=== PATIENT | female | born 1985 | race African-American/Black ===

== ENCOUNTER 2016-12-15 16:53 | Emergency (ER) | payer OTHER, MEDICARE ==
[~2016-12-15] VITALS: Ht 152.4 cm; Wt 81.2 kg
[~2016-12-15 16:53] MED LIST: LEVE100020 PO; TOPI50TA38 PO; [UNRECOGNIZED DRUG - OTHER]
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
[2016-12-15 19:00] VITALS: BP 108/74
[2016-12-15] MEDS: LORazepam 2 MG/ML VIAL IV ONE (19:26)
[2016-12-15] MEDS: levETIRAcetam 500 MG TABLET PO SCH (19:34)
[2016-12-15] MEDS: TOPIRAMATE 25 MG TABLET. PO ONE (19:34)
--- NOTE | 2016-12-16 06:07 | EKG ---
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
== END 2016-12-15 19:40 | disposition home or self-care (01) ==
LOC: ER 16:53
DX: G40.909 Epilepsy, unspecified, not intractable, without status epilepticus (principal); S20.212A Contusion of left front wall of thorax, initial encounter; Z91.14 Patient's other noncompliance with medication regimen; V43.52XA Car driver injured in collision with other type car in traffic accident, initial encounter; Y93.89 Activity, other specified; Y99.8 Other external cause status; Y92.410 Unspecified street and highway as the place of occurrence of the external cause
CPT/HCPCS: 71020; 93005; 99284

== ENCOUNTER 2016-12-26 10:47 | Observation (INO) | payer MEDICARE, OTHER ==
[~2016-12-26] VITALS: Ht 157.5 cm; Wt 81.6 kg
[2016-12-26 15:20] LABS: BASO % 0 % (0-3); EOS # 0.3 x10^3/uL (0.0-0.7); EOS % 4 % (0-3); HEMATOCRIT 35.6 % (36.0-47.0); HEMOGLOBIN 12.1 g/dL (12.0-15.5); LYMPH # 2.3 x10^3/uL (1.0-4.8); LYMPH % 37 % (24-48); MEAN CORPUSCULAR HEMOGLOBIN 30 pg (25-35); MEAN CORPUSCULAR HGB CONC 34 g/dL (31-37); MEAN CORPUSCULAR VOLUME 88 fL (79-100); MONO # 0.3 x10^3/uL (0.0-1.1); MONO % 4 % (0-9); NEUT # 3.4 x10^3uL (1.8-7.7); NEUT % 54 % (31-73); PLATELET COUNT 269 x10^3/uL (140-400); RED BLOOD COUNT 4.06 x10^6/uL (3.50-5.40); RED CELL DISTRIBUTION WIDTH 15.9 % (11.5-14.5); WHITE BLOOD COUNT 6.3 x10^3/uL (4.0-11.0)
[2016-12-26 15:22] VITALS: BP 99/61
[2016-12-26 15:37] LABS: CALCIUM 8.7 mg/dL (8.5-10.1); GFR 78.2; POTASSIUM 3.2 mmol/L (3.5-5.1); TOTAL BILIRUBIN 0.3 mg/dL (0.2-1.0); TOTAL PROTEIN 8.1 g/dL (6.4-8.2)
--- NOTE | 2016-12-26 15:41 | RAD ---
Indication: Chest pain. Time of exam 1530 hours. Correlation is made with prior study from 12/15/2016. The heart size is stable. Stimulator battery pack overlies the left mid chest. There is a calcified granuloma in the right base. No acute infiltrates are seen. No effusion or pneumothorax is identified. Impression: Stable chest. No acute feature is detected.
[2016-12-26] MEDS ORDERED: TOPI50TA8 PO (15:44)
[2016-12-26] MEDS ORDERED: CLOB10TA PO ×2 (15:44)
[2016-12-26] MEDS ORDERED: LEVE750T8 PO (15:44)
[2016-12-26] MEDS ORDERED: CLOB20TA PO (15:44)
[2016-12-26] MEDS ORDERED: LEVO50TA5 PO (15:44)
[2016-12-26] MEDS ORDERED: SENN25TA PO (15:45)
--- NOTE | 2016-12-26 16:55 | EKG ---
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
[2016-12-26] MEDS ORDERED: SENNOSIDES 8.6 MG TABLET PO SCH ×2 (17:00→21:00)
[2016-12-26] MEDS: CLOBAZAM 20 MG PO SCH ×2 (17:00→17:28)
[2016-12-26] MEDS: levETIRAcetam 500 MG TABLET PO SCH (17:08)
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
[2016-12-26] MEDS: TOPIRAMATE 25 MG TABLET. PO SCH (17:27)
[2016-12-26] MEDS ORDERED: IOHEXOL 300 MG/ML 75 ML VIAL. IV ONE (18:00)
[2016-12-26] MEDS ORDERED: ATOR20TA58 PO (18:01)
[2016-12-26 18:03] VITALS: BP 147/82
[2016-12-26] MEDS: LIDOCAINE (700MG/PATCH) PATCH. TD SCH (20:45)
[2016-12-26] MEDS ORDERED: levETIRAcetam 500 MG TABLET PO SCH (21:00)
[2016-12-26] MEDS ORDERED: CLOBAZAM 20 MG PO SCH (21:00)
[2016-12-26] MEDS ORDERED: ATORVASTATIN CALCIUM 20 MG TABLET PO SCH (21:00)
[2016-12-26] MEDS ORDERED: TOPIRAMATE 25 MG TABLET. PO SCH (21:00)
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
[2016-12-26 23:24] VITALS: BP 95/55
[2016-12-27 05:00] VITALS: BP 101/59
[2016-12-27] MEDS ORDERED: CLOBAZAM PO SCH (06:00)
[2016-12-27] MEDS ORDERED: LEVOTHYROXINE 50 MCG TABLET PO SCH (06:00)
[2016-12-27] MEDS: levETIRAcetam 500 MG TABLET PO SCH (06:07)
[2016-12-27] MEDS: TOPIRAMATE 25 MG TABLET. PO SCH (06:13)
[2016-12-27 06:46] LABS: BASO # 0.1 x10^3/uL (0.0-0.2); BASO % 1 % (0-3); EOS # 0.3 x10^3/uL (0.0-0.7); EOS % 5 % (0-3); HEMATOCRIT 33.1 % (36.0-47.0); HEMOGLOBIN 11.4 g/dL (12.0-15.5); LYMPH # 2.2 x10^3/uL (1.0-4.8); LYMPH % 37 % (24-48); MEAN CORPUSCULAR HEMOGLOBIN 30 pg (25-35); MEAN CORPUSCULAR HGB CONC 34 g/dL (31-37); MEAN CORPUSCULAR VOLUME 87 fL (79-100); MONO # 0.3 x10^3/uL (0.0-1.1); MONO % 6 % (0-9); NEUT % 50 % (31-73); PLATELET COUNT 244 x10^3/uL (140-400); RED BLOOD COUNT 3.79 x10^6/uL (3.50-5.40); RED CELL DISTRIBUTION WIDTH 16.4 % (11.5-14.5); WHITE BLOOD COUNT 5.9 x10^3/uL (4.0-11.0)
[2016-12-27 07:03] LABS: CALCIUM 8.6 mg/dL (8.5-10.1); GFR 78.2; POTASSIUM 3.5 mmol/L (3.5-5.1)
[2016-12-27] MEDS: LIDOCAINE (700MG/PATCH) PATCH. TD SCH ×2 (09:39→13:48)
[2016-12-27 10:48] VITALS: BP 101/66
[2016-12-27] MEDS ORDERED: CLOBAZAM 10 MG PO SCH (12:00)
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
[2016-12-27 14:25] VITALS: BP 100/64
[2016-12-27] MEDS ORDERED: SENNOSIDES 8.6 MG TABLET PO PRN (17:00)
== END 2016-12-27 14:50 | disposition home or self-care (01) ==
LOC: 1 SOUTH 14:36
PROVIDERS: ADMIT Family Medicine; ATTEND Family Medicine
DX: R07.89 Other chest pain (principal); R00.1 Bradycardia, unspecified; G40.909 Epilepsy, unspecified, not intractable, without status epilepticus; Z83.3 Family history of diabetes mellitus; Z82.49 Family history of ischemic heart disease and other diseases of the circulatory system
CPT/HCPCS: 36415; 71020; 71260; 80048; 80053; 80061; 82550; 83880; 84443; 84484; 85025; 85379; 93005; 93306; G0378; G0379; Q9967

== ENCOUNTER → 2020-03-12 | Outpatient (CLI) | payer MEDICARE, OTHER ==
[~2020-03-12] MED LIST changes: +ATOR20TA58 PO; +CLOB10TA PO; +CLOB20TA PO; +LEVE750T8 PO; +LEVO50TA5 PO; +SENN25TA PO; +TOPI50TA8 PO
--- NOTE | 2020-03-12 09:26 | RAD ---
EXAM: Chest, 2 views. HISTORY: VQ scan. Shortness of breath. COMPARISON: None. FINDINGS: A frontal view of the chest is obtained. There is no infiltrate, pleural effusion or pneumo thorax. There is a stable cardiac silhouette. There is a left sided vagal nerve stimulator generator and lead overlying the left chest and neck. IMPRESSION: No acute pulmonary finding. Electronically signed by: Maritza Mathew MD (03/12/2020 9:23 AM) [id number]
--- NOTE | 2020-03-12 12:45 | RAD ---
EXAM: Pulmonary perfusion scan. HISTORY: Shortness of breath. Pulmonary embolism TECHNIQUE: Scintigraphic images of the chest were obtained following the administration of 5.5 mCi Tc -99m MAA. COMPARISON: Chest radiograph obtained on the same date. FINDINGS: There is a small peripheral region of photopenia involving the posterior lateral right mid thorax. No additional convincing perfusion defect is seen. IMPRESSION: Low probability for pulmonary embolism. There is no convincing finding correlate with pre viously demonstrated pulmonary emboli on the CT performed 09/08/2019. Electronically signed by: Maritza Mathew MD (03/12/2020 12:43 PM) [id number]
== END | disposition home or self-care (01) ==
LOC: NM 08:26
PROVIDERS: ATTEND Internal Medicine Pulmonary Disease
DX: I26.99 Other pulmonary embolism without acute cor pulmonale (principal); R06.02 Shortness of breath
CPT/HCPCS: 71046; 78580; A9540; 96374

== ENCOUNTER → 2020-07-03 | Outpatient (CLI) | payer MEDICARE, OTHER ==
--- NOTE | 2020-07-03 12:17 | CARD ---
MR#: [id number] Date of Study: 07/03/2020 Ordering Physician: APRIL CAICEDO, Referring Physician: APRIL CAICEDO, Tech: APPROVED REPORT EXAM: Two-dimensional and M-mode echocardiogram with Doppler and color Doppler. INDICATION Pulmonary Hypertention History of pulmonary embolism per patient RISK FACTORS Obesity 2D DIMENSIONS RVDd2.1 (2.9-3.5cm)Left Atrium(2D)2.7 (1.6-4.0cm) IVSd0.9 (0.7-1.1cm)Aortic Root(2D)2.5 (2.0-3.7cm) LVDd4.0 (3.9-5.9cm)LVOT Diameter2.1 (1.8-2.4cm) PWd0.9 (0.7-1.1cm)LVDs2.8 (2.5-4.0cm) FS (%) 29.2 %SV39.8 ml LVEF(%)56.6 (>50%) Aortic Valve AoV Peak Trav.95.0cm/sAoV VTI17.1cm AO Peak GR.3.6mmHgLVOT Peak Trav.82.7cm/s LVOT VTI 15.22cmAO Mean GR.2mmHg OMI (VMAX)2.13qz6BJY (VTI)2.97cm2 Mitral Valve MV E [place]59.4cm/sMV DECEL ILOI317vq MV A Faiiqbys15.8cm/sE/A Ratio1.3 Tricuspid Valve TR P. Sevbbdtr670ui/sRAP OWJBDHQO3tvMu TR Peak Gr.93frTzICWK62wkUw Pulmonary Vein S1 Nhteawth82.2cm/sD2 Juxfbucb86.1cm/s LEFT VENTRICLE The left ventricle is normal size. There is normal left ventricular wall thickness. Left ventricle sy stolic function is low normal. The Ejection Fraction is 50-55%. There is normal LV segmental wall mot ion. The left ventricular diastolic function and filling is normal for age. RIGHT VENTRICLE The right ventricle is normal size. The right ventricular systolic function is normal. ATRIA The left atrium size is normal. The right atrium size is normal. The interatrial septum is intact wit h no evidence for an atrial septal defect or patent foramen ovale as noted on 2-D or Doppler imaging. AORTIC VALVE The aortic valve is normal in structure and function. Doppler and Color Flow revealed no significant aortic regurgitation. There is no significant aortic valvular stenosis. MITRAL VALVE The mitral valve is normal in structure and function. There is no evidence of mitral valve prolapse. There is no mitral valve stenosis. Doppler and Color Flow revealed no mitral valve regurgitation note d. TRICUSPID VALVE The tricuspid valve is normal in structure and function. Doppler and Color Flow revealed trace tricus pid regurgitation. The PA pressure was estimated at 27 mmHg. There is no tricuspid valve stenosis. PULMONIC VALVE The pulmonic valve is not well visualized. Doppler and Color Flow revealed no pulmonic valvular regur gitation. There is no pulmonic valvular stenosis. GREAT VESSELS The aortic root is normal in size. The ascending aorta is normal in size. The IVC is normal in size a nd collapses >50% with inspiration. PERICARDIAL EFFUSION There is no evidence of significant pericardial effusion. Critical Notification Critical Value: No <Conclusion> Left ventricle systolic function is low normal. The Ejection Fraction is 50-55%. There is normal LV segmental wall motion. Doppler and Color Flow revealed trace tricuspid regurgitation. The PA pressure was estimated at 27 mm Hg. Signed by : Joel Mott, Electronically Approved : 07/03/2020 12:17:33
== END ==
LOC: ECHO 10:01
PROVIDERS: ATTEND Internal Medicine Pulmonary Disease
DX: I27.20 Pulmonary hypertension, unspecified (principal)
CPT/HCPCS: 93306

== ENCOUNTER 2020-07-10 20:48 | Emergency (ER) | payer MEDICARE, OTHER ==
[~2020-07-10] VITALS: Ht 157.5 cm; Wt 97.1 kg
[2020-07-10 21:05] VITALS: BP 118/72
--- NOTE | 2020-07-10 21:21 | PHYS DOC ---
Past History Past Medical History: Seizure, Other Additional Past Medical Histor: PE Past Surgical History: Tubal ligation Alcohol Use: None Drug Use: None General Adult EDM: Chief Complaint: KNEE INJURY HPI: HPI: Patient is a [age] year old [sex] who presents with [] Review of Systems: Review of Systems: Constitutional: Denies fever or chills Eyes: Denies change in visual acuity HENT: Denies nasal congestion or sore throat Respiratory: Denies cough or shortness of breath Cardiovascular: Denies chest pain or edema GI: Denies abdominal pain, nausea, vomiting, bloody stools or diarrhea : Denies dysuria Musculoskeletal: Denies back pain or joint pain Integument: Denies rash Neurologic: Denies headache, focal weakness or sensory changes Endocrine: Denies polyuria or polydipsia Lymphatic: Denies swollen glands Psychiatric: Denies depression or anxiety Current Medications: Current Meds: Current Medications Medications (Trade) Dose Ordered Sig/Miguel Start Time Stop Time Status Last Admin Dose Admin Neomycin/ Polymyxin/ Bacitracin (Triple Antibiotic Ointment) 1 pkt 1X ONCE 07/10/20 21:30 07/10/20 21:31 UNV Allergies: Allergies: Allergies Coded Allergies Type Severity Reaction Last Updated Verified lamotrigine Allergy Unknown 07/10/20 Yes Physical Exam: PE: Constitutional: Well developed, well nourished, no acute distress, non-toxic appearance. [] HENT: Normocephalic, atraumatic, bilateral external ears normal, oropharynx moist, no oral exudates, nose normal. [] Eyes: PERRLA, EOMI, conjunctiva normal, no discharge. [] Neck: Normal range of motion, no tenderness, supple, no stridor. [] Cardiovascular:Heart rate regular rhythm, no murmur [] Lungs & Thorax: Bilateral breath sounds clear to auscultation [] Abdomen: Bowel sounds normal, soft, no tenderness, no masses, no pulsatile masses. [] Skin: Warm, dry, no erythema, no rash. [] Back: No tenderness, no CVA tenderness. [] Extremities: No tenderness, no cyanosis, no clubbing, ROM intact, no edema. [] Neurologic: Alert and oriented X 3, normal motor function, normal sensory function, no focal deficits noted. [] Psychologic: Affect normal, judgement normal, mood normal. [] Current Patient Data: Vital Signs: Vital Signs Date Time Temp Pulse Resp B/P (MAP) Pulse Ox O2 Delivery O2 Flow Rate FiO2 07/10/20 21:05 98.8 87 20 118/72 (87) 98 Room Air EKG: EKG: [] Radiology/Procedures: Radiology/Procedures: [] Heart Score: C/O Chest Pain: N/A Course & Med Decision Making: Course & Med Decision Making Pertinent Labs and Imaging studies reviewed. (See chart for details) [] Dragon Disclaimer: Dragon Disclaimer: This electronic medical record was generated, in whole or in part, using a voice recognition dictation system. Departure Departure: Impression: Primary Impression: Knee abrasion Qualified Codes: S80.212A - Abrasion, left knee, initial encounter Disposition: HOME / SELF CARE / HOMELESS Condition: STABLE Referrals: MAYDA BARKER MD (PCP) Patient Instructions: Abrasion, [id number] Additional Instructions: Do not soak your wound. You may shower. Clean wound daily with soap and water. Change dressing 2 times daily. Use over the counter antibiotic ointment with each dressing change. MAYDA MORAN DO July 10, 2020 21:21
[2020-07-10] MEDS ORDERED: NEOMY/BACITR/POLYMYXIN OINT PACKET. TP ONE (21:30)
== END 2020-07-10 21:30 | disposition home or self-care (01) ==
LOC: ER 20:48
DX: S80.212A Abrasion, left knee, initial encounter (principal); Z88.8 Allergy status to other drugs, medicaments and biological substances; W01.0XXA Fall on same level from slipping, tripping and stumbling without subsequent striking against object, initial encounter; Y93.89 Activity, other specified; Y92.89 Other specified places as the place of occurrence of the external cause; Y99.8 Other external cause status
CPT/HCPCS: 99282

== ENCOUNTER → 2020-09-14 | Outpatient (CLI) | payer MEDICARE, OTHER ==
--- NOTE | 2020-09-16 08:23 | RAD ---
Pelvic ultrasound 09/14/2020 CLINICAL HISTORY: Menorrhagia. TECHNIQUE: Using the distended urinary bladder as a sonographic window, a real-time ultrasound examin ation of pelvis was performed. Multiple images were obtained. FINDINGS: The uterus is within normal limits in size and echogenicity. It measures 12.3 x 4.9 x 4.4 c m in longitudinal, transverse, and AP dimensions. The endometrial echo complex measures 5 mm in thick ness which is within normal limits. No focal abnormality of the uterus is seen. The right ovary is normal in size and echogenicity. It measures 4.4 x 3.9 x 2.5 cm in size. A 1.8 cm prominent follicle is seen within the right ovary. The left ovary is normal in size. It measures 4.6 x 3.0 x 2.5 cm in size. Within the left ovary a prominent follicle is seen which measures 2.2 cm in s ize. Normal color-flow and pulse Doppler imaging to both ovaries is noted. No adnexal mass is seen. N o free fluid is noted. IMPRESSION: Negative study. Electronically signed by: Eren Seay MD (09/16/2020 8:21 AM) [id number]
== END ==
LOC: US 12:40
PROVIDERS: ATTEND Obstetrics & Gynecology
DX: N92.0 Excessive and frequent menstruation with regular cycle (principal)
CPT/HCPCS: 76856

== ENCOUNTER 2020-11-29 18:49 | Emergency (ER) | payer MEDICARE, OTHER | END 2020-11-29 19:46 | disposition left against medical advice (07) | LOC: ER 18:49 | DX: H92.09 Otalgia, unspecified ear (principal); Z53.21 Procedure and treatment not carried out due to patient leaving prior to being seen by health care provider ==

== ENCOUNTER 2020-12-06 19:51 | Emergency (ER) | payer MEDICARE, OTHER ==
[~2020-12-06] VITALS: Ht 157.5 cm; Wt 94.2 kg
[2020-12-06 20:00] VITALS: BP 123/75
[2020-12-06] MEDS ORDERED: AMOXICILLIN/K CLAV 875/125MG TABLET. PO ONE (20:30)
[2020-12-06] MEDS ORDERED: AMOX1TAB61 PO (20:35)
--- NOTE | 2020-12-06 20:36 | PHYS DOC ---
Past History Past Medical History: Seizure, Other Additional Past Medical Histor: PULMONARY EMBOLI Past Surgical History: Cholecystectomy, Hysterectomy, Other Additional Past Surgical Histo: NERVE STIMULATOR Smoking: Non-smoker Alcohol Use: None Drug Use: None Adult General Chief Complaint Chief Complaint: EARACHE/EAR PAIN [facility] Patient is a 35 year old female who presents with left ear pain for last 3 weeks. She was seen at urgent care yesterday and was told that she may need to follow-up or come to the ER for proper evaluation. Patient states that the left ear has muffled sound but not much pain. Is bothering her because it feels dull. She denies any headache, visual disturbance, difficulty with chewing or swallowing, neck pain or tooth pain. She has no fever or nausea or vomiting. She has no other complaints. Review of Systems Review of Systems Constitutional: Denies fever or chills Eyes: Denies change in visual acuity, redness, or eye pain HENT: Denies nasal congestion or sore throat Respiratory: Denies cough or shortness of breath Cardiovascular: No additional information not addressed in [facility] GI: Denies abdominal pain, nausea, vomiting, bloody stools or diarrhea : Denies dysuria or hematuria Musculoskeletal: Denies back pain or joint pain Integument: Denies rash or skin lesions Neurologic: Denies headache, focal weakness or sensory changes Endocrine: Denies polyuria or polydipsia All other systems were reviewed and found to be within normal limits, except as documented in this note. Allergies Allergies Allergies Coded Allergies Type Severity Reaction Last Updated Verified lamotrigine Allergy Unknown 07/10/20 Yes phenytoin Allergy Unknown 12/06/20 Yes Physical Exam Physical Exam Constitutional: Well developed, well nourished, no acute distress, non-toxic appearance. HENT: Normocephalic, atraumatic, bilateral external ears normal, no ear canal abnormalities or tenderness on either side. Left TM dull but not much erythematous. Right TM clear. Oropharynx moist, no oral exudates, nose normal. Eyes: PERRLA, EOMI, conjunctiva normal, no discharge. Neck: Normal range of motion, no tenderness, supple, no stridor. Cardiovascular:Heart rate regular rhythm, no murmur Lungs & Thorax: Bilateral breath sounds clear to auscultation Abdomen: Bowel sounds normal, soft, no tenderness, no masses, no pulsatile masses. Skin: Warm, dry, no erythema, no rash. Back: No tenderness, no CVA tenderness. Extremities: No tenderness, no cyanosis, no clubbing, ROM intact, no edema. Neurologic: Alert and oriented X 3, normal motor function, normal sensory function, no focal deficits noted. Psychologic: Affect normal, judgement normal, mood normal. Current Patient Data Vital Signs Vital Signs Date Time Temp Pulse Resp B/P (MAP) Pulse Ox O2 Delivery O2 Flow Rate FiO2 12/06/20 20:00 97.9 99 20 123/75 (91) 99 Room Air EKG EKG [] Radiology/Procedures Radiology/Procedures [] Heart Score C/O Chest Pain: No Risk Factors: Risk Factors: DM, Current or recent (<one month) smoker, HTN, HLP, family history of CAD, obesity. Risk Scores: Risk Factors: DM, Current or recent (<one month) smoker, HTN, HLP, family history of CAD, obesity. Course & Med Decision Making Course & Med Decision Making Pertinent Labs and Imaging studies reviewed. (See chart for details) Patient clinically has left otitis media without any exudate or rupture. There is no signs of external otitis. Her throat is completely clear. There is no facial or periauricular swelling. She will be treated with Augmentin with a dose in the emergency department followed by prescription. She already has appointment made for 12/12 see her physician. Faye Disclaimer Faye Disclaimer This electronic medical record was generated, in whole or in part, using a voice recognition dictation system. Departure Departure: Impression: Primary Impression: Left otitis media Disposition: HOME / SELF CARE / HOMELESS Condition: STABLE Referrals: MAYDA BARKER MD (PCP) Keep your appointment for next week as you have it. Patient Instructions: Otitis Media, Adult Additional Instructions: If you notice any drainage from your ear or increased pain or fever, you should seek medical attention. Scripts Amoxicillin/Potassium Clav (AUGMENTIN 875-125 TABLET) 1 Each Tablet 1 TAB PO BID for 7 Days, #14 TAB 0 Refills Prov: JOSSIE SNOW MD 12/06/20 JOSSIE SNOW MD Dec 06, 2020 20:36
[2020-12-06] MEDS ORDERED: AMOXICILLIN/K CLAV 875/125MG TABLET. ONE (20:39)
== END 2020-12-06 20:44 | disposition home or self-care (01) ==
LOC: ER 19:51
DX: H66.92 Otitis media, unspecified, left ear (principal); Z88.8 Allergy status to other drugs, medicaments and biological substances; Z90.49 Acquired absence of other specified parts of digestive tract; Z90.710 Acquired absence of both cervix and uterus
CPT/HCPCS: 99283-25

== ENCOUNTER 2020-12-16 13:30 | Emergency (ER) | payer MEDICARE, OTHER ==
[~2020-12-16] VITALS: Ht 157.5 cm; Wt 94.1 kg
[~2020-12-16 13:30] MED LIST changes: +AMOX1TAB61 PO
[2020-12-16] MEDS ORDERED: ACETAMINOPHEN 500 MG TABLET PO ONE (14:15)
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
--- NOTE | 2020-12-16 14:52 | RAD ---
XR KNEE 4 VIEWS WITH PATELLA_RT Clinical indications: Reason: fall /pain. Findings: No acute fracture or dislocation or osteolytic process is evident. The patella is normally aligned. There is mild degenerative joint space narrowing and spurring of the lateral tibiofemoral j oint compartment. There is mild degenerative joint space narrowing without spurring of the medial tib iofemoral joint compartment. There is minimal spurring of the lateral aspect of the patellofemoral ayesha int compartment without joint space narrowing. No right knee joint effusion is seen. IMPRESSION: No acute osseous abnormality is evident. Mild DJD. Electronically signed by: Rudy Anders MD (12/16/2020 2:49 PM) [id number]
--- NOTE | 2020-12-16 15:00 | RAD ---
CT brain without contrast, CT C-spine without contrast. HISTORY: Fall, anticoagulation medication CT brain CT scan of brain was done without contrast. There is mucosal thickening in the maxillary and ethmoid sinuses. A skull fracture is not identified. There is no intracranial hemorrhage or subdural hematoma . There is no mass effect or shift of the midline. Ventricles are normal in size. IMPRESSION: 1. No intracranial hemorrhage or acute finding noted. End impression CT cervical spine Axial CT images were obtained to the cervical spine. Sagittal and coronal reconstructed images were r eviewed. C-spine is in normal alignment. A fracture is not identified. Disc spaces are normal in heig ht. Thyroid is homogeneous. A disc protrusion is not evident. There is mild degenerative spurring ant eriorly at C5-6. There is a stimulator in the neck on the left. IMPRESSION: 1. No acute fracture noted in the cervical spine. PQRS Compliance Statement: One or more of the following individualized dose reduction techniques were utilized for this examinat ion: 1. Automated exposure control 2. Adjustment of the mA and/or kV according to patient size 3. Use of iterative reconstruction technique Electronically signed by: Ezequiel Guadalupe MD (12/16/2020 2:58 PM) [facility]
[2020-12-16 15:14] VITALS: BP 111/71
== END 2020-12-16 15:22 | disposition home or self-care (01) ==
LOC: ER 13:30
DX: S80.01XA Contusion of right knee, initial encounter (principal); S00.83XA Contusion of other part of head, initial encounter; M54.2 Cervicalgia; M79.622 Pain in left upper arm; Z88.8 Allergy status to other drugs, medicaments and biological substances; Y08.89XA Assault by other specified means, initial encounter; Y93.89 Activity, other specified; Y92.89 Other specified places as the place of occurrence of the external cause; Y99.8 Other external cause status
CPT/HCPCS: 70450; 72125; 73564; 99285-25